=== PATIENT | female | born 2000 | race Caucasian/White ===

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

== ENCOUNTER 2022-01-14 12:55 | Outpatient (CLI) | payer MEDICAID, SELFPAY ==
[2022-01-14] VITALS (14 sets, daily range): BP systolic 108–123; BP diastolic 56–71; PULSE 82–100; RESP 16; BMI 34.3
[2022-01-14 14:29] LABS: Add Urine Culture? No; Bacteria Urine TRACE /hpf; Bilirubin Urine Neg (Negative); Blood Urine Neg (Negative); Glucose Urine UA Norm (Normal); Ketones Urine Negative (Negative); Leukocyte Esterase Urine Negative (Negative); Nitrate Urine Negative (Negative); Protein Urine Neg (Negative); Urine Appearance Clear (CLEAR); Urine Color Yellow (Yellow); Urobilinogen Urine Norm (Negative); WBC Urine 0-4 /hpf (0-5); pH Urine 6.5 (5-7)
== END 2022-01-14 16:27 | disposition home or self-care (01) ==
LOC: OPOB 12:57 → OBGYN 13:04
PROVIDERS: PCP Obstetrics & Gynecology; Visit Provider Obstetrics & Gynecology
DX: O26.899 Other specified pregnancy related conditions, unspecified trimester (principal); Z3A.00 Weeks of gestation of pregnancy not specified; R10.9 Unspecified abdominal pain
CPT/HCPCS: 59025; 81001; 84315; 99211

== ENCOUNTER → 2022-01-28 10:40 | Outpatient (BNVA) | payer MEDICAID, SELFPAY | PROVIDERS: PCP Obstetrics & Gynecology; Visit Provider Obstetrics & Gynecology | DX: Z34.90 Encounter for supervision of normal pregnancy, unspecified, unspecified trimester (principal) | CPT/HCPCS: 84315; 87081 ==

== ENCOUNTER 2022-02-04 14:27 | Outpatient (CLI) | payer MEDICAID, SELFPAY ==
[2022-02-04 14:47] VITALS: BMI 37.2
[2022-02-04 15:08] LABS: Actim Prom Negative
[2022-02-04 15:12] VITALS: BP 119/75; PULSE 93
== END 2022-02-04 15:57 | disposition home or self-care (01) ==
LOC: OPOB 14:28 → OBGYN 14:29
PROVIDERS: PCP Obstetrics & Gynecology; Visit Provider Obstetrics & Gynecology
DX: O26.899 Other specified pregnancy related conditions, unspecified trimester (principal); Z3A.00 Weeks of gestation of pregnancy not specified; N89.8 Other specified noninflammatory disorders of vagina
CPT/HCPCS: 59025; 83986; 84112; 84315; 99211

== ENCOUNTER 2022-02-07 20:19 | Outpatient (CLI) | payer MEDICAID, SELFPAY ==
[2022-02-07] VITALS (7 sets, daily range): BP systolic 112–123; BP diastolic 55–67; PULSE 70–82; BMI 35.9
== END 2022-02-07 23:21 | disposition home or self-care (01) ==
LOC: OPOB 20:42 → OBGYN 20:42
PROVIDERS: PCP Obstetrics & Gynecology; Visit Provider Obstetrics & Gynecology
DX: O26.899 Other specified pregnancy related conditions, unspecified trimester (principal); Z3A.00 Weeks of gestation of pregnancy not specified
CPT/HCPCS: 59025; 83986; 99211

== ENCOUNTER 2022-02-15 07:00 | Inpatient (IN) | payer MEDICAID, SELFPAY ==
[2022-02-15] VITALS (81 sets, daily range): BP systolic 67–141; BP diastolic 36–85; PULSE 58–103; RESP 16–20; TEMP 36.6–38.2; BMI 34.9
[2022-02-15 07:07] LABS: Actim Prom Positive
[2022-02-15] MEDS: dextrose 5%-lactated ringers 1,000 ML 125 ML IV ×3 (07:50→20:14)
[2022-02-15 08:03] LABS: Basophils % 0.2 %; Eosinophils % 0.4 %; Hematocrit 40.9 % (37.0-47.0); Hemoglobin 13.5 g/dL (11.5-15.3); Lymphocytes # 2.3 10^3/uL (1.5-6.5); Lymphocytes % 21.7 %; Mean Corpuscular Hemoglobin 27.2 pg (28.0-34.0); Mean Corpuscular Volume 82.5 fl (81-99); Mean Platelet Volume 11.1 fL (7.4-10.4); Monocytes # 0.8 10^3/uL (0.2-0.9); Monocytes % 7.9 %; Neutrophils # 7.19 10^3/uL (1.8-8.0); Neutrophils % 69.5 %; Nucleated Red Blood Cells % 0 %; Platelet Count 201 10^3/cmm (130-400); Red Blood Count 4.96 10^6/uL (4.1-5.3); Red Cell Distribution Width 13.7 % (12.1-15.1); White Blood Count 10.4 10^3/uL (4.5-13.0)
--- NOTE | 2022-02-15 09:16 | PM.OPHPUD ---
Labor & Delivery H&P Update Date of Procedure: February 15, 2022 Date H&P Performed: 02/11/22 H&P update information: I have reviewed H&P completed within last 30 days, I have examined patient prior to procedure and Changes to prior documentation as noted here Changes to previous documentation: The patient presented with SROM at 0430 today. Cervix is unchanged from office visit Admission Diagnosis: Related Problem List Diagnoses (1) Depression affecting : (2) Supervision of other normal :
[2022-02-15] MEDS: oxytocin 30 UNIT/500 ML BAG IV (12:18)
--- NOTE | 2022-02-15 21:52 | PM.DELIVERY ---
Delivery Note: Date of delivery: February 15, 2022 Pre-delivery diagnoses: iup@38 weeks 4/7 days, PROM Post-delivery diagnoses: same, delivered Procedure: Delivering Physician: Tamara Estimated blood loss (mL): 20 Findings: term male in the cephalic presentation Pre-Delivery Course: The patient was admitted for PROM at 0430 today. She was started on pitocin after about 6 hours. She had complete cervical dilation and began pushing. Delivery: The patient had complete cervical dilation and began to push. The head delivered in the AMANDA position over an intact perineum under no anesthesia. The nose and mouth were bulb suctioned. The shoulders and body delivered atraumatically. The baby was placed onto the mother's abdomen. The cord was clamped and cut. Cord blood was obtained. The placenta delivered spontaneously. It was inspected and found to be intact. Inspection of the perineum revealed a right labial laceration which was hemostatic. Estimated blood loss 20 mL. Apgars on baby were 8 at 1 minute and 9 at 5 minutes. Weight of baby is pending. Mother and baby were stable post delivery. History History History 3 Term 2 Miscarriages/Ectopic 0 0 Living Children 2 Coding Level of Care Code Acute Manager Biologics for Deepak Gauthier
[2022-02-15] MEDS: oxytocin 30 UNIT/500 ML BAG 600 UNIT IV (22:58)
[2022-02-15] MEDS: miSOPROStol 200 mcg Tablet 600 MCG PO (23:15)
[2022-02-16] VITALS (10 sets, daily range): BP systolic 111–133; BP diastolic 64–85; PULSE 82–105; RESP 16; TEMP 36.9; O2SAT 99
[2022-02-16] MEDS: HYDROcodone-acetaminophen 5-325 mg Tablet PO (04:39)
[2022-02-16] MEDS: prenatal vitamin Capsule 1 CAP PO (09:16)
[2022-02-16] MEDS: ibuprofen 800 mg tablet PO (09:16)
[2022-02-16] MEDS: docusate sodium 100 mg Capsule PO (09:16)
--- NOTE | 2022-02-16 09:56 | PM.DCS ---
Discharge Providers Date of Admission: 02/15/22 07:00 Date of Discharge: February 16, 2022 Attending Provider at Admission: Moira Mcdonald MD Attending Provider at Discharge: Moira Mcdonald MD Primary Care Provider: Ty Tomlinson MD Diagnoses at Discharge Discharge Diagnosis (1) Depression affecting : Status: Acute (2) Supervision of other normal : Status: Acute Reason for Visit Reason for Visit: POSSIBLE SROM Hospital Course Hospital Course The patient was admitted with PROM. She had spontaneous delivery of a term male . She did well . Baby was transferred for pneumonia. mom requested discharge on day #1 Physical Exam Narrative: doing well today. No physical concerns Const: COMMON NORMALS: no acute distress, patient oriented x3, no limitations, healthy appearing, alert and well nourished GENERAL APPEARANCE: cooperative, comfortable, well kempt and well developed ORIENTATION/CONSCIOUSNESS: Yes awake, Yes oriented to person, Yes oriented to place and Yes oriented to time Resp: COMMON NORMALS: normal respiratory effort EFFORT & INSPECTION: Yes able to speak in complete sentences GI: COMMON NORMALS: Soft to palpation and non-tender PALPATION: Yes Soft to palpation Extremity: COMMON NORMALS: no calf tenderness Neuro: COMMON NORMALS: patient oriented x3 SENSORIUM/ORIENTATION: Yes alert, Yes oriented to person, Yes oriented to place and Yes oriented to time Psych: APPEARANCE: Yes well kempt Discharge Data Studies Completed and Pending Pending at discharge Category Date Time Status Hemagram Timed Lab 02/16/22 09:51 Uncollected Laboratory Results WBC 10.4 10^3/uL (4.5-13.0) 02/15/22 07:45 RBC 4.96 10^6/uL (4.1-5.3) 02/15/22 07:45 Hgb 13.5 g/dL (11.5-15.3) 02/15/22 07:45 Hct 40.9 % (37.0-47.0) 02/15/22 07:45 MCV 82.5 fl (81-99) 02/15/22 07:45 MCH 27.2 pg (28.0-34.0) L 02/15/22 07:45 MCHC 33.0 g/dL (30.0-36.0) 02/15/22 07:45 RDW 13.7 % (12.1-15.1) 02/15/22 07:45 Plt Count 201 10^3/cmm (130-400) 02/15/22 07:45 MPV 11.1 fL (7.4-10.4) H 02/15/22 07:45 Neut % (Auto) 69.5 % 02/15/22 07:45 Lymph % (Auto) 21.7 % 02/15/22 07:45 [place] % (Auto) 7.9 % 02/15/22 07:45 Eos % (Auto) 0.4 % 02/15/22 07:45 Baso % (Auto) 0.2 % 02/15/22 07:45 Neut # (Auto) 7.19 10^3/uL (1.8-8.0) 02/15/22 07:45 Lymph # (Auto) 2.3 10^3/uL (1.5-6.5) 02/15/22 07:45 [place] # (Auto) 0.8 10^3/uL (0.2-0.9) 02/15/22 07:45 Eos # (Auto) 0.0 10^3/uL (0.0-0.8) 02/15/22 07:45 Baso # (Auto) 0.0 10^3/uL (0.0-0.1) 02/15/22 07:45 Nucleated RBC % (auto) 0 % 02/15/22 07:45 Nucleated RBCs # 0.0 /100WBC 02/15/22 07:45 Insulin-like GF I Positive 02/15/22 06:35 Vitals Last Vital Signs Temp 100.8 F H 02/15/22 21:53 Pulse 105 H 02/16/22 07:54 Resp 16 02/16/22 08:01 BP 111/64 02/16/22 07:54 Discharge Plan Discharge Patient Disposition: Home Condition: Stable Prescriptions: Continued prenat.vits,solomon,[id number] Tablet 1 tab PO DAILY 0RF Discharge Orders: Discharge Order (Routine); Ordered 02/16/22 Ordered By: Moira Mcdonald Patient Instructions: Depression (DC), Expression, Collection and Storage of Breast Milk (DC), Bleeding (DC), Preeclampsia and Eclampsia After Delivery (GEN), OB Discharge Report, OB Food/Drug Interaction Guide, OB Care at Home, Opioid Safety, OB Vaginal Deliveries - [facility] Discharge Attestations Time Spent in Discharge Care*: less than 30 min Quality Metrics Clinical Quality Measures [ No reported AMI, CVA or VTE this stay] Coding Level of Care Code Acute Chg FW DC note Diagnoses Depression affecting O99.340; F32.9 Supervision of other normal Z34.80
== END 2022-02-16 10:02 | disposition home or self-care (01) | DRG 807 ==
PROVIDERS: Admitting Provider Obstetrics & Gynecology; PCP Obstetrics & Gynecology; Visit Provider Obstetrics & Gynecology
DX: O99.344 Other mental disorders complicating childbirth (principal); Z37.0 Single live birth; F32.A Depression, unspecified; Z3A.38 38 weeks gestation of pregnancy
CPT/HCPCS: 36415; 59025; 59409; 84112; 85025; 99211

== ENCOUNTER → 2022-04-12 08:47 | Outpatient (BNVA) | payer MEDICAID, SELFPAY | PROVIDERS: PCP Obstetrics & Gynecology; Visit Provider Obstetrics & Gynecology | DX: Z39.2 Encounter for routine postpartum follow-up (principal) | CPT/HCPCS: 81025 ==

== ENCOUNTER → 2022-05-27 10:01 | Outpatient (BNVA) | payer MEDICAID, SELFPAY | PROVIDERS: PCP Obstetrics & Gynecology; Visit Provider Obstetrics & Gynecology | DX: Z32.01 Encounter for pregnancy test, result positive (principal) | CPT/HCPCS: 84702 ==

== ENCOUNTER → 2023-04-15 11:35 | Outpatient (BNVA) | payer MEDICAID, SELFPAY | PROVIDERS: PCP Obstetrics & Gynecology; Visit Provider Obstetrics & Gynecology | DX: Z34.80 Encounter for supervision of other normal pregnancy, unspecified trimester (principal) | CPT/HCPCS: 84443; 84702 ==

== ENCOUNTER → 2023-07-11 15:12 | Outpatient (BNVA) | payer MEDICAID, SELFPAY | PROVIDERS: PCP Obstetrics & Gynecology; Visit Provider Obstetrics & Gynecology | DX: N92.6 Irregular menstruation, unspecified (principal) | CPT/HCPCS: 81025 ==

== ENCOUNTER → 2024-04-26 10:54 | Outpatient (BNVA) | payer MEDICAID, SELFPAY | PROVIDERS: PCP Obstetrics & Gynecology; Visit Provider Obstetrics & Gynecology | DX: N92.6 Irregular menstruation, unspecified (principal) | CPT/HCPCS: 83001; 84146; 84443; 84702 ==

== ENCOUNTER → 2024-05-26 11:07 | Outpatient (BNVA) | payer SELFPAY | PROVIDERS: PCP Obstetrics & Gynecology; Visit Provider Obstetrics & Gynecology | DX: R10.2 Pelvic and perineal pain (principal); N88.8 Other specified noninflammatory disorders of cervix uteri | CPT/HCPCS: 76830 ==

== ENCOUNTER 2024-07-26 16:47 | Emergency (ER) | payer MEDICAID, SELFPAY ==
[2024-07-26 17:14] VITALS: BP 127/80; PULSE 99; RESP 18; TEMP 36.7; O2SAT 98; BMI 33.2
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
[2024-07-26 20:15] VITALS: BP 132/92; PULSE 85; RESP 16; O2SAT 96
== END 2024-07-26 20:16 | disposition home or self-care (01) ==
PROVIDERS: Emergency Provider Physician Assistant; PCP Obstetrics & Gynecology
DX: S09.8XXA Other specified injuries of head, initial encounter (principal); V89.2XXA Person injured in unspecified motor-vehicle accident, traffic, initial encounter
CPT/HCPCS: 70450; 72125; 99284

== ENCOUNTER → 2024-12-17 14:58 | Outpatient (BNVA) | payer OTHER, SELFPAY | PROVIDERS: PCP Clinical Nurse Specialist Adult Health; Visit Provider Obstetrics & Gynecology | DX: N91.2 Amenorrhea, unspecified (principal) | CPT/HCPCS: 84702 ==

== ENCOUNTER → 2025-03-07 11:24 | Outpatient (BNVA) | payer OTHER, SELFPAY | PROVIDERS: PCP Clinical Nurse Specialist Adult Health; Visit Provider Clinical Nurse Specialist Adult Health | DX: J06.9 Acute upper respiratory infection, unspecified (principal) | CPT/HCPCS: 87880 ==

== ENCOUNTER → 2025-04-23 11:47 | Outpatient (BNVA) | payer OTHER, SELFPAY | PROVIDERS: PCP Clinical Nurse Specialist Adult Health; Visit Provider Registered Nurse Neonatal Intensive Care | DX: N12 Tubulo-interstitial nephritis, not specified as acute or chronic (principal) | CPT/HCPCS: 81000; 87077; 87086; 87184 ==

== ENCOUNTER → 2025-07-20 12:59 | Outpatient (BNVA) | payer OTHER, MEDICAID, SELFPAY | PROVIDERS: PCP Clinical Nurse Specialist Adult Health; Visit Provider Obstetrics & Gynecology | DX: N91.2 Amenorrhea, unspecified (principal) | CPT/HCPCS: 81025 ==

== ENCOUNTER 2025-07-22 12:57 | Outpatient (CLI) | payer OTHER, MEDICAID, SELFPAY ==
--- NOTE | 2025-07-22 13:00 | USR_ITS ---
PROCEDURE INFORMATION: Exam: US First Trimester, Transabdominal and US , Transvaginal Exam date and time: 07/22/2025 1:06 PM Age: 24 years old Clinical indication: Screening exam; Routine US, uterus; Additional info: Z34.80 - encounter for supervision of other normal pregna. . . , LABS AND CLINICAL REPORTS: Last menstrual period start date: 06/03/2025 Gestational age (Established): 7 w 0 d Estimated due date (Established): 03/10/2026 TECHNIQUE: Imaging protocol: Real-time transabdominal obstetrical ultrasound of the maternal pelvis and a first trimester , less than 14 weeks 0 days, with image documentation. Transvaginal imaging was used for better evaluation of the fetus, adnexa, and/or cervix. COMPARISON: US OB >= 14 weeks fetus [id number] 10/09/2021 8:59 AM FINDINGS: GESTATION: Gestation: Single intrauterine gestation. Yolk sac measures 3 mm. Embryo/ cardiac activity (BPM): 155 bpm Extra-embryonic membranes/Placenta: No significant subchorionic bleed. Amniotic/Chorionic fluid: Amniotic and extra-amniotic fluid are normal for gestational age. BIOMETRY: Gestational age (AUA): 7 weeks 4 days Mean sac diameter: 2.82 cm. EGA (MSD) is 7 w 6 d MATERNAL: Uterus: Unremarkable. Cervix: Unremarkable. Right ovary/adnexa: Measures 3.0 x 2.1 x 2.9 cm. No concerning mass. Flow is evident on color Doppler evaluation. Left ovary/adnexa: Obscured by lack of adequate acoustic window. Intraperitoneal space: No visible pelvic free fluid. US/US OB <=14 wk fetus w transvag IMPRESSION: Single living intrauterine gestation measuring 7 weeks 4 days by ultrasound.
== END 2025-07-22 12:58 | disposition home or self-care (01) ==
LOC: RAD 12:59
PROVIDERS: PCP Clinical Nurse Specialist Adult Health; Visit Provider Obstetrics & Gynecology
DX: Z34.81 Encounter for supervision of other normal pregnancy, first trimester (principal); Z3A.01 Less than 8 weeks gestation of pregnancy
CPT/HCPCS: 76801; 76817

== ENCOUNTER → 2025-08-17 13:06 | Outpatient (BNVA) | payer OTHER, MEDICAID, SELFPAY | PROVIDERS: PCP Clinical Nurse Specialist Adult Health; Visit Provider Nurse Practitioner Women's Health | DX: O99.810 Abnormal glucose complicating pregnancy (principal); Z3A.10 10 weeks gestation of pregnancy | CPT/HCPCS: 80307; 83036; 84315; 85025; 86592; 86762; 86803; 86850; 86900; 87086; 87340; 87806 ==

== ENCOUNTER → 2025-08-31 08:59 | Outpatient (BNVA) | payer OTHER, MEDICAID, SELFPAY | PROVIDERS: PCP Clinical Nurse Specialist Adult Health; Visit Provider Obstetrics & Gynecology | DX: Z32.01 Encounter for pregnancy test, result positive (principal); O99.211 Obesity complicating pregnancy, first trimester; E66.01 Morbid (severe) obesity due to excess calories | CPT/HCPCS: 82950; 84315 ==

== ENCOUNTER → 2025-09-07 08:05 | Outpatient (BNVA) | payer OTHER, MEDICAID, SELFPAY | PROVIDERS: PCP Clinical Nurse Specialist Adult Health; Visit Provider Obstetrics & Gynecology | DX: O99.211 Obesity complicating pregnancy, first trimester (principal); E66.01 Morbid (severe) obesity due to excess calories | CPT/HCPCS: 82951; 82952 ==

== ENCOUNTER → 2025-09-28 13:06 | Outpatient (BNVA) | payer OTHER, MEDICAID, SELFPAY | PROVIDERS: PCP Clinical Nurse Specialist Adult Health; Visit Provider Nurse Practitioner Women's Health | DX: Z34.92 Encounter for supervision of normal pregnancy, unspecified, second trimester (principal); Z3A.16 16 weeks gestation of pregnancy; Z87.59 Personal history of other complications of pregnancy, childbirth and the puerperium | CPT/HCPCS: 84315; 87086; 87491; 87591; 87661 ==

== ENCOUNTER → 2025-09-30 13:09 | Outpatient (BNVA) | payer OTHER, MEDICAID, SELFPAY | PROVIDERS: PCP Clinical Nurse Specialist Adult Health; Visit Provider Obstetrics & Gynecology | DX: Z34.82 Encounter for supervision of other normal pregnancy, second trimester (principal); Z3A.16 16 weeks gestation of pregnancy; A74.9 Chlamydial infection, unspecified | CPT/HCPCS: 80053; 84315; 87491; 87591; 87661 ==